=== PATIENT | female | born 1950 | race Caucasian/White ===

== ENCOUNTER 2017-04-22 08:47 | Emergency (ER) | payer OTHER ==
[2017-04-22] MEDS: CloNIDine HCL 0.1 MG TABLET PO ONE (09:22)
--- NOTE | 2017-04-22 09:42 | ED Physician Documentation ---
General Adult - HISTORIAN Historian: patient - HPI Stated Complaint: left back rib pain Chief Complaint: General Adult Additional Information: mid thoracic pain, T8-9 area, started about 2 weeks ago, after fall injury and/ or paining, no cough, no resp. issues, no hemoptysis, no pain with movement or breathing Onset: days ago (14) Timing: still present Severity: moderate Modifying Factors: none Context: after fall/exertion 2 weeks ago Quality: sharp Location: T8-9 left Further Comments: yes (comes and goes) Last known Well Date: 04/06/17 Last Known Well Time: 00:00 Last known Well Code/Unknown Code: Unknown - ROS CONST: no problems. denies: fever, sweating, recent illness, weakness, weight loss, chills EYES/ENT: none CVS/RESP: other (no radiation to anterior chest). denies: chest pain, shortness of breath, cough GI/: none MS/SKIN/LYMPH: other (mid left thoracic pain as noted above) NEURO/PSYCH: denies: headache, fainting, dizziness, tingling, numbness, difficulty walking, difficulty with speech, anxiety, depression - PAST HX Past History: none Other History: none Surgeries/Procedures: none Immunizations: referred to PCP Allergies/Adverse Reactions: Allergies Allergy/AdvReac Type Severity Reaction Status Date / Time No Known Allergies Allergy Verified 04/22/17 09:17 Home Medications: Ambulatory Orders Medication Instructions Recorded NK [NK] 04/22/17 - SOCIAL HX Smoking History: cigarettes Alcohol Use: none Drug Use: none - FAMILY HX Family History: No - VITAL SIGNS Vital Signs: Vital Signs Temp Pulse Resp BP Pulse Ox 99.6 F 97 H 20 215/118 97 04/22/17 08:47 04/22/17 08:47 04/22/17 08:47 04/22/17 08:47 04/22/17 08:47 - REVIEWED ASSESSMENTS Nursing Assessment Reviewed: Yes Vitals Reviewed: Yes Progress - Results/Orders Results/Orders: left rib and cxr ordered - Progress Progress: pt. given clonidine 0.1 mg p.o. for elevated bp in er Critical Care Note - Critical Care Note Total Time (mins): 0 ED Results Lab/Radiology - Lab Results Lab Results: none ordered - Radiology Radiology Impressions: multiple healing left sided rib fractures - Orders Orders: ED Orders Category Date Time Status RIBS UNILATERAL W/ PA CHEST [RAD] Routine Exams 04/22/17 Ordered CloNIDine HCL [Catapress] Med 04/22/17 09:20 Discontinued 0.1 mg PO NOW ONE General Adult Physical Exam - PHYSICAL EXAM GENERAL APPEARANCE: no distress EENT: eye inspection normal, ENT inspection normal, pharynx normal, no signs of dehydration, MAYELA, no nystagmus, TM's nml NECK: normal inspection, thyroid normal, supple RESPIRATORY: no resp distress, chest non-tender, breath sounds normal. No: wheezes, rhonchi CVS: reg rate & rhythm, heart sounds normal, equal pulses ABDOMEN: soft, no organomegaly, normal bowel sounds, no abdominal bruit, no distension, non-tender BACK: normal inspection, no CVA tenderness, other (no bruising, no deformity, no tenderness) SKIN: warm/dry, normal color EXTREMITIES: non-tender, normal range of motion, no evidence of injury, no edema NEURO: oriented X3, CN's nml as tested, motor nml, sensation nml, mood/affect nml, cognition normal Discharge Clincal Impression: Rib fractures Qualifiers: Encounter type: initial encounter Rib fracture type: multiple ribs Fracture type: closed Laterality: left Qualified Code(s): S22.42XA - Multiple fractures of ribs, left side, initial encounter for closed fracture Hypertension Qualifiers: Hypertension type: essential hypertension Qualified Code(s): I10 - Essential ( primary) hypertension Referrals: Primary Doctor,No [Primary Care Provider] - 2 Days Home Medications: Ambulatory Orders NK [NK] 04/22/17 Comments: Home in stable condition with bp of 130/80 after clonidine 0.1 mg p.o. Scripts given for clonidine 0.1 mg #15 1 p.o. daily and percocet 10/325 #20 1/2 to 1 p.o. qid prn pain Condition: Stable Disposition: 01 HOME, SELF-CARE Decision to Admit: NO Decision Time: 11:16
[2017-04-22 11:34] VITALS: BP 133/80
--- NOTE | 2017-04-22 14:46 | Diagnostic Imaging Report ---
CHANDLER PINZON [facility] [id number] [facility].[address] [id number] Report Submission Date: Apr 22, 2017 10:47:22 AM CDT Patient Study Name: IMMANUEL AZUL Date: Apr 22, 2017 9:57:20 AM CDT Modality Type: CR Gender: F Description: CHEST : 46 Institution: [facility] Physician: CHANDLER PINZON Chest and left ribs CLINICAL HISTORY: Left-sided posterior rib pain after a fall. FINDINGS: Examination of the chest in PA view demonstrates the lungs to be clear. Cardiac silhouette is within normal limits and the aorta is atherosclerotic. Examination of the left rib cage in AP, oblique and coned-down views of the lower ribs demonstrates multiple healed left rib fractures. There is no evidence of acute fracture or pneumothorax. IMPRESSION: Old left rib fractures. Aortic atherosclerosis. Hyperinflation. Electronically signed on Apr 22, 2017 10:47:22 AM CDT by: Santosh RODRIGUEZ
== END 2017-04-22 11:15 | disposition home or self-care (01) ==
LOC: ED 08:47
DX: S22.42XA Multiple fractures of ribs, left side, initial encounter for closed fracture (principal); X58.XXXA Exposure to other specified factors, initial encounter; Y93.9 Activity, unspecified; Y99.9 Unspecified external cause status; I10 Essential (primary) hypertension
CPT/HCPCS: 71101; 99283

== ENCOUNTER 2017-08-22 08:45 | Outpatient (CLI) | payer OTHER | END 2017-08-22 09:00 | LOC: RAD 08:45 | PROVIDERS: ATTEND Family Medicine | DX: M81.0 Age-related osteoporosis without current pathological fracture (principal) | CPT/HCPCS: 77080 ==

== ENCOUNTER 2017-12-12 12:59 | Outpatient (CLI) | payer OTHER | END 2017-12-12 13:00 | LOC: LAB 12:59 | PROVIDERS: ATTEND Family Medicine | DX: M81.0 Age-related osteoporosis without current pathological fracture (principal) | CPT/HCPCS: 36415; 82523 ==